=== PATIENT | female | born 1945 | race Caucasian/White ===

== ENCOUNTER → 2017-04-13 | Outpatient (CLI) | payer BC ==
--- NOTE | 2017-04-13 13:10 | DIAGNOSTIC IMAGING REPORT ---
RIGHT WRIST MIN 3 VIEWS ROUTINE CLINICAL HISTORY: Right wrist pain. COMPARISON: None FINDINGS: Alignment of the right wrist is anatomic. There is no fracture or suspicious lesion. A tiny lucent lesion within the scaphoid with sclerotic rim is benign. No erosions are identified. IMPRESSION: No significant abnormality of the right wrist. Electronically signed by: Quan Zhang M.D. 04/13/2017 1:09 PM Dictated Date/Time: 04/13/2017 1:08 PM
--- NOTE | 2017-04-13 13:11 | DIAGNOSTIC IMAGING REPORT ---
TWO VIEW CHEST CLINICAL HISTORY: Chronic cough. FINDINGS: PA and lateral chest radiographs are obtained. No prior studies are available for comparison at the time of dictation. The cardiomediastinal silhouette is unremarkable. There is mild nonspecific interstitial thickening. No airspace consolidation or pleural effusion is identified. There is no pneumothorax. The skeletal structures are osteopenic. The bony thorax appears intact. IMPRESSION: No active disease in the chest. Electronically signed by: Vipin Villanueva M.D. 04/13/2017 1:10 PM Dictated Date/Time: 04/13/2017 1:09 PM
== END | disposition home or self-care (01) ==
LOC: C.RAD1850 12:34
PROVIDERS: ATTEND Nurse Practitioner Adult Health
DX: R05 Cough (principal); M25.531 Pain in right wrist

== ENCOUNTER → 2017-04-19 | Outpatient (CLI) | payer BC ==
--- NOTE | 2017-04-19 12:14 | DIAGNOSTIC IMAGING REPORT ---
SINUSES MIN 3 VIEWS ROUTINE CLINICAL HISTORY: J01.90 Acute [id number] COMPARISON STUDY: No previous studies for comparison. FINDINGS: No air-fluid levels are visualized. No bony destructive changes are delineated. The frontal sinuses appear hypoplastic. IMPRESSION: Hypoplastic frontal sinuses. No conventional radiographic evidence of acute sinusitis. Electronically signed by: Milton Vázquez M.D. 04/19/2017 12:13 PM Dictated Date/Time: 04/19/2017 12:12 PM
== END | disposition home or self-care (01) ==
LOC: C.RAD1850 11:57
PROVIDERS: ATTEND Internal Medicine Pulmonary Disease
DX: J01.90 Acute sinusitis, unspecified (principal)

== ENCOUNTER 2020-10-18 05:09 | Observation (INO) ==
--- NOTE | 2020-09-23 10:43 | PAT Medication Instructions ---
Medication Instructions Date of Service September 23, 2020 Home Medications multivitamin 1 tab PO QPM glucosamine-chondroitin [Osteo Bi-Flex] 3 tab PO QPM cholecalciferol (vitamin D3) 25 mcg (1,000 unit) capsule 2,000 unit PO QPM Bacillus coagulans [Digestive Advantage Prob Gummy] 500 cell PO QPM plant stanol elisha [Cholest Off] 900 mg PO BID turmeric root extract 500 mg PO QPM calcium carbonate [Tums] 200 mg PO BID PRN amlodipine 10 mg PO QPM STOP taking 2 weeks before surgery glucosamine-chondroitin [Osteo Bi-Flex] 3 tab PO QPM plant stanol elisha [Cholest Off] 900 mg PO BID turmeric root extract 500 mg PO QPM DO NOT take the morning of surgery calcium carbonate [Tums] 200 mg PO BID PRN Take evening before surgery multivitamin 1 tab PO QPM cholecalciferol (vitamin D3) 25 mcg (1,000 unit) capsule 2,000 unit PO QPM Bacillus coagulans [Digestive Advantage Prob Gummy] 500 cell PO QPM calcium carbonate [Tums] 200 mg PO BID PRN (if needed) amlodipine 10 mg PO QPM OTHERWISE NOTHING TO EAT OR DRINK AFTER MIDNIGHT Other Notes If you have any questions please call us at [phone] or [phone] or [phone] or [phone]
--- NOTE | 2020-09-28 12:49 | Anesthesiology Consultation ---
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 Discussed with Dr. Morales- pt can proceed with surgery as scheduled. Amide class usually used for SAB- pt has "possible" allergy to elisha class- reaction unknown. Per PAT appt on 09/28/20, pt resides in [facility]. Traveled to [place], [place] >2 weeks ago. Did have Covid exposure on 09/05/20- quarantined x 2 weeks. No current Covid related symptoms. Pt denies any Covid infection in the past 90 days. Educated patient to follow up with surgeon's office regarding Covid testing (patient educated usually done 6-7 days prior to surgery) . Educated on importance of self quarantining, social distancing and wearing mask in public both for the patient and household contacts. Teaching & Discussion Pre-Anesthesia Teaching/Discussion Notes: Instructed NPO after midnight before surgery,except medications with 15 cc of water. Medication instructions provided according to the PAT guidelines. History Surgery Operation Date: 10/18/20 13:30 Proposed Procedures p Right Total Knee Arthroplasty - Gio Hammer DO Height/Weight Height: 5 ft 4.5 in Weight: 77.6 kg Allergies Allergy/AdvReac Type Severity Reaction Status Date / Time acetaminophen [From Vicodin] AdvReac Intermediate Bowel Verified 09/28/20 13:55 obstruction hydrocodone [From Vicodin] AdvReac Intermediate Bowel Verified 09/28/20 13:55 obstruction lisinopril AdvReac Mild Cough Verified 09/28/20 13:55 procaine [From Novocain] AdvReac Unknown A Verified 09/28/20 13:55 CHILD-UNKNOWN Additional Notes: Surgeon's office was informed of procaine/novocaine allergy; also noted on OR sheet. Medications Home Medications Medication Instructions Recorded Confirmed Last Taken multivitamin 1 tab PO QPM 05/27/19 09/28/20 Unknown glucosamine-chondroitin [Osteo 3 tab PO QPM 10/30/19 09/28/20 Unknown Bi-Flex] cholecalciferol (vitamin D3) 25 2,000 unit PO QPM cap 05/31/20 09/28/20 Unknown mcg (1,000 unit) capsule Bacillus coagulans [Digestive 500 cell PO QPM 06/24/20 09/28/20 Unknown Advantage Prob Gummy] plant stanol elisha [Cholest Off] 900 mg PO BID 06/24/20 09/28/20 Unknown turmeric root extract 500 mg PO QPM 06/24/20 09/28/20 Unknown calcium carbonate [Tums] 200 mg PO BID PRN 08/04/20 09/28/20 Unknown amlodipine 10 mg PO QPM 09/06/20 09/28/20 Unknown Past Medical History Medical History (Updated 09/28/20 @ 13:21 by Samaria Kumar PA-C) Arthritis Cardiac murmur Hx of rheumatic fever as child 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 No significant murmur noted at 09/28/20 PAT appt Chronic cough Ongoing x years- unchanged. Nonproductive GERD (gastroesophageal reflux disease) Well controlled and stable- diet dependent Hyperlipidemia NO MEDS-DIET MANAGED Hypertension Hypothyroidism Exercise / Class Metabolic Activity II 4-5 Yardwork/Stairs/Walk up hill (one flight of stairs - no chest pain or SOB) Past Family History Family History Mother Coronary heart disease Myocardial infarction FH: CABG (coronary artery bypass surgery) Grandmother (Maternal) Diabetes Aunt Breast cancer Uncle Prostate cancer Myocardial infarction Sister Family history of reaction to anesthesia Denies family history of Ovarian cancer Colorectal cancer Past Surgical History Surgical History H/O pyloroplasty History of cataract surgery History of colonoscopy History of esophagogastroduodenoscopy (EGD) History of surgical removal of ganglion cyst History of tonsillectomy S/P oophorectomy S/P tubal ligation Past Anesthesia History No Hx of Anesthesia Complications and No Family Hx of Anesthesia Complications History of PONV No Hx of PONV and No Hx of Motion Sickness Social History Smoking Status: Never smoker Do You Dip or Chew Tobacco: No Hx Alcohol Use: No Hx Substance Use: No substance use type: does not use Review of Systems Has had beating sensation with "swishing" sound in left ear - (Pt called PAT 09/29/20 and states she followed up with PCP 09/29/20 re: symptoms and states PCP feels no significant issues noted) Occ snoring - no hx of sleep study. Patient denies chest pain, shortness of breath, dyspnea on exertion, wheezing, palpitations. No hx of seizures, stroke, NH, apnea/snoring. No hx of blood clots or blood transfusions Physical Exam Vital Signs VITALS BP 112/71 P 68 TEMP 97.9 SP02 98% RESP 16 Constitutional no acute distress ENMT Mouth: no TMJ clicking Thyromental Distance: > or= 3.5 Finger Breadths (3.5) Mallampati Class: III Left front tooth capped Missing molars and side teeth Crowns to molars and side teeth Neck neck extension not limited Respiratory normal respiratory effort; no respiratory distress Auscultation: lungs clear to auscultation bilaterally; no wheezes Cardiovascular Rate/Rhythm: regular rate and regular rhythm Heart Sounds: no murmur Vessels: no carotid bruit Musculoskeletal Spine: + pain with cervical ROM (mild ) Extremities: extremities normal to inspection Psychiatric Orientation: alert Testing Laboratory Results 09/28/20 13:19 09/28/20 13:19 PT 10.0 Seconds (9.0-12.0) 09/28/20 13:19 INR 1.0 (0.9-1.1) 09/28/20 13:19 APTT 29.8 Seconds (21.0-31.0) 09/28/20 13:19 Blood Type O Positive 09/28/20 13:19 Antibody Screen NEGATIVE 09/28/20 13:19 Electrocardiogram Date: 09/28/20 Sinus rhythm with first-degree AV block at 61 bpm. Otherwise normal EKG per cardio. Chest X-Ray Date: 09/28/20 Findings: + NAD Stress Test Date: 01/23/19 Type: exercise (Echo) Resting LV Function: normal Resting RWMA: + none Negative exercise stress echocardiogram stress EKG for ischemia at 86% MPHR. MPHR 86%. 4.6 METS achieved. Mild concentric LVH. LVEF 60%.
--- NOTE | 2020-09-28 13:50 | XRay Report ---
XR chest Pre-admission PA/Lat CLINICAL HISTORY: Preoperative evaluation. COMPARISON STUDY: Chest radiograph April 13, 2017. FINDINGS: Lung volumes are normal. Lungs are clear. There is no pneumothorax or pleural effusion. Car diac size is normal. Mediastinal contours are normal. There is no evidence for pulmonary edema. IMPRESSION: No acute cardiopulmonary findings. ACT 112: Negative or not required by law. Electronically signed by: Quan Zhang M.D. 09/28/2020 1:48 PM
[2020-09-28 13:59] LABS: Basophils # (auto) 0.02 K/uL (0-0.2); Basophils % (auto) 0.3 %; Eosinophils # (auto) 0.17 K/uL (0-0.5); Eosinophils % (auto) 2.8 %; Hematocrit (blood only) 40.8 % (37-47); Hemoglobin 13.8 g/dL (12.0-16.0); Lymphocytes # (auto) 2.37 K/uL (1.2-3.4); Lymphocytes % (auto) 39.6 %; Mean Corpuscular Hemoglobin 29.7 pg (25-34); Mean Corpuscular Hgb Conc 33.8 g/dL (32-36); Mean Corpuscular Volume 87.9 fL (80-100); Mean Platelet Volume 10.7 fL (7.4-10.4); Monocytes # (auto) 0.59 K/uL (0.11-0.59); Monocytes % (auto) 9.9 %; Neutrophils # (auto) 2.83 K/uL (1.4-6.5); Neutrophils % (auto) 47.4 %; Platelet Count 220 K/uL (130-400); RDW Coefficient of Variation 12.6 % (11.5-14.5); RDW Standard Deviation 40.6 fL (36.4-46.3); Red Blood Count 4.64 M/uL (4.2-5.4); White Blood Count 5.98 K/uL (4.8-10.8)
--- NOTE | 2020-09-28 14:00 | Electrocardiogram Report ---
Test Reason : Blood Pressure : / mmHG Vent. Rate : 061 BPM Atrial Rate : 061 BPM P-R Int : 232 ms QRS Dur : 086 ms QT Int : 438 ms P-R-T Axes : 057 025 036 degrees QTc Int : 440 ms Sinus rhythm with 1st degree A-V block Otherwise normal ECG No previous ECGs available Confirmed by Jone Metzger ([id number]) on 09/28/2020 2:00:28 PM Referred By: Gio Hammer Confirmed By:Jone Metzger
[2020-09-28 14:07] LABS: Calcium 9.8 mg/dl (8.5-10.1); Creatinine Clr Calc Pharmacy 54.8 ml/min; Potassium 3.9 mmol/L (3.5-5.1)
[2020-09-28 14:09] LABS: Partial Thromboplastin Ratio 1.1; Partial Thromboplastin Time 29.8 Seconds (21.0-31.0)
--- NOTE | 2020-10-14 16:13 | History & Physical Report ---
Date of Service October 14, 2020 Assessment & Plan (1) Right knee DJD: We will proceed with a right total knee arthroplasty. Postoperatively she will be placed on aspirin for DVT prophylaxis and kept overnight in the hospital for postoperative medical management. She plans to use energy physical therapy upon discharge. History of Present Illness Chief Complaint: Osteoarthritis of the right knee. Primary Care Provider: Simran Jacob MD Jeanie is a pleasant 75-year-old female who is been dealing with right knee pain for several years. She denies any specific injuries. X-rays and clinical examination have been diagnostic for advanced osteoarthritis of the right knee. After failing conservative treatment, she has elected to proceed with a right total knee arthroplasty.. Allergies Allergy/AdvReac Type Severity Reaction Status Date / Time acetaminophen [From Vicodin] AdvReac Intermediate Bowel Verified 10/05/20 12:39 obstruction hydrocodone [From Vicodin] AdvReac Intermediate Bowel Verified 10/05/20 12:39 obstruction lisinopril AdvReac Mild Cough Verified 10/05/20 12:39 procaine [From Novocain] AdvReac Unknown A Verified 10/05/20 12:39 CHILD-UNKNOWN Home Medications Medication Instructions Recorded Confirmed Type multivitamin 1 tab PO QPM 05/27/19 10/05/20 History glucosamine-chondroitin [Osteo 3 tab PO QPM 10/30/19 10/05/20 History Bi-Flex] cholecalciferol (vitamin D3) 25 2,000 unit PO QPM cap 05/31/20 10/05/20 History mcg (1,000 unit) capsule Bacillus coagulans [Digestive 500 cell PO QPM 06/24/20 10/05/20 History Advantage Prob Gummy] plant stanol elisha [Cholest Off] 900 mg PO BID 06/24/20 10/05/20 History turmeric root extract 500 mg PO QPM 06/24/20 10/05/20 History calcium carbonate [Tums] 200 mg PO BID PRN 08/04/20 10/05/20 History amlodipine 10 mg PO QPM 09/06/20 10/05/20 History Past Med/Surg History Medical History Arthritis Cardiac murmur Hx of rheumatic fever as child 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 No significant murmur noted at 09/28/20 PAT appt Chronic cough Ongoing x years- unchanged. Nonproductive GERD (gastroesophageal reflux disease) Well controlled and stable- diet dependent Hyperlipidemia NO MEDS-DIET MANAGED Hypertension Hypothyroidism Surgical History H/O pyloroplasty INFANT History of cataract surgery right and left History of colonoscopy History of esophagogastroduodenoscopy (EGD) History of surgical removal of ganglion cyst pinky finger on right hand History of tonsillectomy S/P oophorectomy S/P tubal ligation Family History Mother Coronary heart disease Myocardial infarction FH: CABG (coronary artery bypass surgery) Grandmother (Maternal) Diabetes Aunt Breast cancer Uncle Prostate cancer Myocardial infarction Sister Family history of reaction to anesthesia take a lot of anesthesia Denies family history of Ovarian cancer Colorectal cancer Social History Smoking Status: Never smoker Second Hand Exposure: No; Hx Alcohol Use: No Hx Substance Use: No Preferred Language: Turkmen Communication Ability: Effective Scrap Baller Required: No Beliefs That Will Affect Care: None marital status: Current Living Situation: Spouse current occupational status: retired Feels Safe at Home: Yes Dental Care, Regularly: Yes Physical Activity Frequency: Does not Exercise Seatbelt Use: always Sunscreen Use: Yes (sometimes) Assistive Devices: None Review of Systems All systems reviewed & are unremarkable except as noted in HPI & below. Physical Exam On physical examination of the right knee, there is a slight varus deformity. She has good motion of 0 to 120 degrees. She has no instability. She has pain over the distal medial femoral condyle and over the medial joint line.. Constitutional WD/WN, vitals as above Eyes PERRL, conjunctivae normal, anicteric sclerae ENMT external ear and nose normal, oropharynx normal Neck trachea midline, no thyromegaly Respiratory normal respiratory effort Cardiovascular RRR, no murmur, no edema Gastrointestinal (Abdomen) normal bowel sounds, soft, nontender, no hepatosplenomegaly Psychiatric A+Ox3, euthymic affect Results & Data Results & Data Laboratory Results . Diagnostic Findings X-rays of the right knee do show advanced osteoarthritis with joint space narrowing, osteophyte formation, and [id number]-[id number] articulation.. PG Care Time/CCT Total # of Minutes Spent Total Time Spent with Patient: Total time spent is greater than 50% in coordination of care (as documented) at patient's floor/unit and/or counseling patient: Coding Level of Care Code None Diagnoses Right knee DJD M17.11
[2020-10-18] MEDS ORDERED: TRANEXAMIC ACID 1,000 MG **IV Intra-op IV SCH (06:00)
[2020-10-18] MEDS ORDERED: GABAPENTIN 300 MG CAP PO SCH (06:00)
[2020-10-18] MEDS ORDERED: TRANEXAMIC ACID 1,000 MG **IV Pre-op IV SCH (06:00)
[2020-10-18] MEDS ORDERED: LR 500ML BOLUS, THEN 15ML/HR IV SCH (06:00)
[2020-10-18] MEDS ORDERED: dexAMETHasone 4 MG TAB PO SCH (06:00)
[2020-10-18] MEDS ORDERED: FAMOTIDINE 20 MG TAB PO SCH (06:00)
[2020-10-18] MEDS ORDERED: ceFAZolin 1000MG 1,000 MG/7.5 ML SYR IV SCH (06:00)
[2020-10-18] MEDS ORDERED: ACETAMINOPHEN 500 MG TAB PO SCH (06:00)
[2020-10-18] MEDS ORDERED: LR 60ML/HR IV SCH (06:00)
[2020-10-18] MEDS ORDERED: ROPIVACAINE 0.5% HCL/PF 150 MG, BUPIVACAINE 0.75% MPF 20 ML, EPINEPHrine 30MG/30ML (OR ... INSTIL SCH (06:00)
[2020-10-18] MEDS ORDERED: BUPIVACAINE 0.25% 30 ML VIAL ONE (06:29)
[2020-10-18] MEDS ORDERED: BUPIVACAINE 0.5 % 5 MG/1 ML PF 10ML VIAL ONE (06:29)
--- NOTE | 2020-10-18 06:29 | History & Physical Bridge Note ---
Date of Service October 18, 2020 History & Physical Bridge Note I have examined the patient, reviewed the History & Physical and in the interval since the performance of the History & Physical I have noted the following changes of clinical significance: no changes noted
[2020-10-18] MEDS ORDERED: MIDAZOLAM HCL 1 MG/ML 2ML VIAL ONE (06:36)
[2020-10-18] MEDS ORDERED: fentaNYL citrate 100 MCG/2 ML VIAL ONE (06:36)
[2020-10-18] MEDS ORDERED: PROPOFOL IV EMULSION 10 MG/ML 20 ML VIAL IV ONE (06:36)
[2020-10-18] MEDS ORDERED: ONDANSETRON INJ 2 MG/ML 2 ML VIAL ONE (06:36)
[2020-10-18] MEDS ORDERED: LIDOCAINE HCL 2% 2 ML VIAL/AMP(20MG/ML) INFIL ONE (06:36)
[2020-10-18] MEDS ORDERED: ePHEDrine sulfate 50 MG/ML AMP IV PRN (06:55)
[2020-10-18] MEDS ORDERED: ONDANSETRON INJ 2 MG/ML 2 ML VIAL IV PRN ×2 (06:55→10:06)
[2020-10-18] MEDS ORDERED: fentaNYL citrate 100 MCG/2 ML VIAL IV PRN (06:55)
[2020-10-18] MEDS ORDERED: ATROPINE SULFATE 0.1 MG/ML 10ML SYR IV PRN (06:55)
[2020-10-18] MEDS ORDERED: ORTHO JOINT ANESTHETIC ONE (07:00)
--- NOTE | 2020-10-18 08:39 | Operative Report ---
PG Post Operative Report Pre & Post Diagnosis Operation Date: 10/18/20 07:15 Pre-Op Diagnosis: Degenerative Joint Disease Right Knee Post-Op Diagnosis: Degenerative Joint Disease Right Knee I identified the patient and participated in the time-out.: Yes Procedure Operation Date: 10/18/20 07:15 Actual Procedures p Right Total Knee Arthroplasty(Right) - Gio Hammer DO Surgeon Gio Hammer DO Washing Tub Operator Gio Yeung PAC Estimated Blood Loss 10 Findings Consistent with Post-Op Diagnosis Specimens Right femoral and tibial bone Complications none Disposition Disposition: Recovery Room Indications Jeanie is a pleasant 75-year-old female who is been doing with chronic increasing right knee pain. X-rays and clinical examination were diagnostic for advanced osteoarthritis of the right knee. After failing conservative treatment, she elected proceed with a right total knee arthroplasty. Description of Procedure Implants used: I used a Heena Persona total knee arthroplasty system with a size 8 standard femur, F tibia, 29 patella, and a size 12 medial congruent polyethylene bearing. All components were cemented in place with Palacos G cement. Jeanie arrived [facility] for the above procedure. She was seen in the preoperative holding area and the operative extremity was identified and signed. She was given a preoperative antibiotic, TXA, a spinal anesthetic and an adductor nerve block. She was taken back to the operating room and laid on the table in supine position. She was given basic sedation. The operative knee was then prepped and draped in sterile fashion. A timeout was done, and the patient and the operative extremity was properly identified. A midline incision was made directly over the patella. Dissection was taken down to the extensor mechanism. A subvastus arthrotomy was used. The medial retinaculum was released and the fat pad was mostly excised. The knee was flexed and the ACL, PCL, and meniscus were removed. A drill was sent down the center of the femoral canal followed by an intramedullary ellen. Off that ellen a distal femoral cutting block was placed. 9 mm was resected off the distal femur at 5 of valgus. A posterior referencing AP sizing guide was then placed on the distal femur. The femur measured to be a size 8 standard. 2 drill holes were placed in 3 of external rotation. A 4-in-1 cutting block was then impacted into place. Anterior, posterior, and chamfer cuts were then made. The proximal tibia was then exposed. An external tibial alignment guide was placed. A tibial cut guide was then anchored in place and the proximal tibia was then resected. The posterior aspect of the knee was then opened up and any additional meniscus fragments and osteophytes were removed. The tibia measured to be a size F. The tibial plate was then placed in the appropriate rotation and the tibia was drilled and punched. Trial components were then placed. I used a size 12 medial congruent polyethylene insert. The knee was brought through a full range of motion and felt to be stable. The peg holes for the femoral component were then drilled. The patella was then everted and 9 mm was resected off the posterior aspect of the patella. The patella measured to be a size 29. 3 peg holes were then drilled. A trial patella was placed. The knee was once again brought through a full range of motion and felt to be stable. Trial components were then removed. The surrounding soft tissues were injected with 100 cc of an orthopedic pain control cocktail. All components were then cemented into place with Palacos G cement. The final polyethylene insert was then snapped into place. Once cement was dry the tourniquet was deflated. Hemostasis was obtained. A dilute betadyne lavage was then done for 3 minutes. The joint was then irrigated with normal saline solution. The subvastus arthrotomy was then closed with #1 Vicryl suture. The skin was closed with 2-0 Vicryl, 3-0V lock suture, and luis. A Silverlon and a soft compressive dressing were placed. She was then transferred to a hospital bed and taken to the postanesthesia care unit in stable condition. She tolerated the procedure well. Gio Yeung PA-C, was present for the entire procedure. He was critical for patient positioning, prepping, draping, retraction exposure, wound closure and application of sterile dressing. I attest to the content of the Intraoperative Record and any orders documented therein. Any exceptions are noted below.
--- NOTE | 2020-10-18 09:41 | XRay Report ---
XR knee RT 1 or 2V routine CLINICAL HISTORY: Postoperative evaluation. COMPARISON: Knee radiographs July 05, 2020. FINDINGS: Alignment of the total right knee arthroplasty is anatomic. There is no periprosthetic fra cture or unexpected radiopaque foreign body. There are skin luis. IMPRESSION: Expected findings following total right knee arthroplasty. ACT 112: Negative or not required by law. Electronically signed by: Quan Zhang M.D. 10/18/2020 9:39 AM
[2020-10-18] MEDS ORDERED: METOCLOPRAMIDE HCL INJ 5 MG/ML 2 ML VIAL IV PRN (10:06)
[2020-10-18] MEDS ORDERED: bisacodyL 10 MG SUPP PR PRN (10:06)
[2020-10-18] MEDS ORDERED: MAGNESIUM HYDROXIDE SUSP 30 ML UDC PO PRN (10:06)
[2020-10-18] MEDS ORDERED: HYDROmorphone INJ 0.5 MG/0.5 ML SYR IV PRN (10:06)
[2020-10-18] MEDS ORDERED: NALOXONE HCL 0.4 MG/1 ML VIAL/CARP IV PRN (10:06)
[2020-10-18] MEDS: SODIUM CHLORIDE 0.9% 1000ML 1,000 ML IV SCH ×2 (10:59→20:36)
[2020-10-18] MEDS: KETOROLAC TROMETHAMINE 15 MG/ML VIAL IV SCH ×3 (10:59→22:08)
[2020-10-18] MEDS: ASPIRIN 81 MG ECTAB PO SCH ×2 (11:00→20:35)
[2020-10-18] MEDS: MULTIVITAMIN TAB PO SCH (11:00)
[2020-10-18] MEDS: DOCUSATE SODIUM 100 MG CAP PO SCH ×2 (11:11→20:35)
[2020-10-18] MEDS: oxyCODONE HCL IR 5 MG TAB (IMMEDIATE RELEASE) PO PRN (12:41)
[2020-10-18] MEDS: ACETAMINOPHEN 500 MG TAB PO SCH ×2 (13:22→22:07)
--- NOTE | 2020-10-18 13:53 | Anesthesiology Progress Note ---
Date of Service October 18, 2020 Anesthesia Post Procedure Vital Signs Vital Signs: Temp Pulse Pulse Pulse Resp BP BP 10/18/20 12:54 65 16 124/65 10/18/20 12:01 65 16 125/72 10/18/20 11:01 36.4 C L 69 16 118/68 10/18/20 10:29 68 16 120/72 10/18/20 10:00 36.7 C 59 L 16 129/60 10/18/20 09:40 36.4 C L 60 20 131/65 10/18/20 09:30 57 L 19 128/61 10/18/20 09:20 58 L 10 L 122/63 10/18/20 09:10 58 L 10 L 137/60 10/18/20 09:00 58 L 21 131/69 10/18/20 08:50 64 15 138/65 10/18/20 08:43 36.0 C L 66 16 126/57 L 10/18/20 05:46 36.6 C 69 20 133/69 Pulse Ox 10/18/20 12:54 97 10/18/20 12:01 96 10/18/20 11:01 100 10/18/20 10:29 95 10/18/20 10:00 98 10/18/20 09:40 97 10/18/20 09:30 100 10/18/20 09:20 100 10/18/20 09:10 96 10/18/20 09:00 96 10/18/20 08:50 97 10/18/20 08:43 97 10/18/20 05:46 96 Pain Intensity Right Knee: Pain Intensity: 2 Transfer of Care Handoff Completed per policy Notes Mental Status: alert / awake / arousable Patient Amnestic to Procedure: Yes Nausea / Vomiting: adequately controlled Pain: adequately controlled Airway Patency, RR, SpO2: stable & adequate BP & HR: stable & adequate Hydration State: stable & adequate Neuraxial Anesthesia: was administered and sensory block is resolving Anesthetic Complications: no major complications apparent and Pt Satisfied with anesthetic care
[2020-10-18] MEDS: ceFAZolin 2000MG 2,000 MG/15 ML SYR IV SCH ×2 (15:32→22:09)
[2020-10-18] MEDS ORDERED: SENNA 8.6 MG TAB PO SCH (21:00)
[2020-10-18] MEDS ORDERED: amLODIPine BESYLATE 5 MG TAB PO SCH (21:00)
[2020-10-19] MEDS: ACETAMINOPHEN 500 MG TAB PO SCH (05:20)
[2020-10-19] MEDS: KETOROLAC TROMETHAMINE 15 MG/ML VIAL IV SCH (05:21)
[2020-10-19 06:40] LABS: Hematocrit (blood only) 35.6 % (37-47); Hemoglobin 12.2 g/dL (12.0-16.0); Mean Corpuscular Hemoglobin 29.8 pg (25-34); Mean Corpuscular Hgb Conc 34.3 g/dL (32-36); Mean Platelet Volume 10.2 fL (7.4-10.4); Platelet Count 204 K/uL (130-400); RDW Coefficient of Variation 12.6 % (11.5-14.5); RDW Standard Deviation 40.5 fL (36.4-46.3); Red Blood Count 4.09 M/uL (4.2-5.4); White Blood Count 13.65 K/uL (4.8-10.8)
--- NOTE | 2020-10-19 06:46 | Orthopedic Progress Note ---
Date of Service October 19, 2020 Assessment & Plan (1) Status post right knee replacement: Overall she is doing well. She is having too much pain in the right knee. She will be seen by physical therapy today for ambulation and range of motion exercises. She is on aspirin for DVT prophylaxis. She can be discharged home later today. She will follow-up with orthopedics in 2 weeks. Bo Ware was seen and examined at bedside this morning. Overall she is doing fairly well. She is starting to have a little pain in the right leg. She was able to get some sleep last night. She has no complaints.. Review of Systems All systems reviewed & are unremarkable except as noted in HPI & below. Physical Exam On physical examination of the right knee, the dressing is clean and dry. She has active dorsiflexion plantarflexion of her right ankle. Sensation is intact throughout.. Results & Data Results & Data Laboratory Results . Diagnostic Findings Postoperative x-rays of the right knee show the prosthesis to be in anatomic alignment without any evidence of fracture, dislocation, or loosening.. PG Care Time/CCT Total # of Minutes Spent Total Time Spent with Patient: Total time spent is greater than 50% in coordination of care (as documented) at patient's floor/unit and/or counseling patient: Coding Level of Care Code 91373 Post Operative Follow-Up Diagnoses Status post right knee replacement Z96.651
--- NOTE | 2020-10-19 06:47 | Discharge Summary ---
Date of Service October 19, 2020 Admission HPI (Per Admitting) Jeanie is a pleasant 75-year-old female who is been dealing with right knee pain for several years. She denies any specific injuries. X-rays and clinical examination have been diagnostic for advanced osteoarthritis of the right knee. After failing conservative treatment, she has elected to proceed with a right total knee arthroplasty.. Admission Exam (Per Admitting) On physical examination of the right knee, there is a slight varus deformity. She has good motion of 0 to 120 degrees. She has no instability. She has pain over the distal medial femoral condyle and over the medial joint line.. Principal Diagnosis Same as "Discharge Diagnosis" noted below under Discharge Instructions. Discharge Exam On physical examination of the right knee, the dressing is clean and dry. She has active dorsiflexion plantarflexion of her right ankle. Sensation is intact throughout.. Discharge Data Consultations 10/18/20 10:06 Consult Case Management - Discharge Planning Routine Procedures Performed Operation Date: 10/18/20 07:15 Actual Procedures p Right Total Knee Arthroplasty(Right) - Gio Hammer DO Ordered Studies 10/18/20 05:00 US - OR guided needle placemen Routine Hospital Course (1) Status post right knee replacement: On October 18, 2020 Jeanie arrived at [facility] and underwent a right total knee arthroplasty without complication. She had a spinal anesthetic. Postoperatively she was started on aspirin for DVT prophylaxis and transferred to the general orthopedic floors. Her hospital course was uneventful. On postop day #1 her H&H was stable and her pain was well controlled. She was able to participate well with physical therapy doing ambulation and range of motion exercises. She was then discharged to home. She will follow-up with orthopedics in 2 weeks. PG Care Time/CCT Total # of Minutes Spent Total Time Spent with Patient: Total time spent is greater than 50% in coordination of care (as documented) at patient's floor/unit and/or counseling patient: Discharge Plan Discharge Items Patient Disposition: Home - Home Health Services Reason For Visit: Degenerative Joint Disease Right Knee Discharge Diagnosis: Right knee replacement Activity: As commented below Non-emergency contact: Surgeon Call non-emergency contact if: your wound has increased redness and your wound has increased drainage Follow-up/Referrals: Balabanova-Tsarnakov,Ralitsa V., MD [Primary Care Provider] - Diet: Regular Addtl Attending Provider Instructions: Activity and Therapy Recommendations: * If you are using [facility] then therapy will be provided at your home until they feel you have accomplished all of your goals. * If you are using [facility] then Physical Therapy will be provided until they feel you are ready to start Outpatient Physical Therapy. * If you are not using home therapy then Outpatient Physical Therapy should start about 3-5 days from your day of surgery. Therapy will last about 6-10 weeks * It is important not to put a pillow under your knee when you are relaxing or sleeping. It is just as important to make sure you are getting your knee perfectly straight as it is to regain your knee bend. * You were shown a series of exercises in the hospital. Do these exercises three times each day including the exercises you were shown in physical therapy. * Get up and walk several times each day. For the first four weeks, try not to stand or walk for more than one hour at a time. If you do stand or walk for more than one hour, you will not hurt anything, but your leg will likely swell. * As you feel comfortable, you may change from the walker or crutches to a cane and then to independent walking. Medications: * Narcotic You will likely be sent home from the hospital with a prescription for the narcotic pain medication that worked best throughout your stay. * Aspirin Most patients will be required to take Aspirin 81mg twice a day for 6 weeks after surgery. This is obtained [id number] and a prescription is not necessary. * Other medications may be prescribed for specific circumstances. If you have any questions, please call the office at . * Resume previous home medications unless otherwise instructed TEDs/Elastic Stockings: The white elastic stockings help limit swelling and prevent blood clots from forming in your legs.~ The more you wear them, the more they work. Wear them for six weeks. Dressing Care: Leave the Silverlon dressing in place for 7 days. After 7 days you may remove the dressing. If the incision is not draining then you may leave the luis open to air. If there is a little bit of drainage or if the luis are getting stuck on your clothing then cover the incision with a dry dressing. The luis will be removed at your 2 week follow-up appointment. Showering: You may shower with the Silverlon dressing in place. Do not let the shower spray hit the dressing directly. Pat the Silverlon dressing dry. If the dressing becomes wet underneath, then simply remove the dressing. Keep the incision dry until you are 7 days out from the day of surgery. After 7 days you may remove the Silverlon dressing and shower with the luis exposed. Let soapy water run over the luis and pat them dry. Do not scrub or soak the incision. Things To Watch For: * Drainage from the incision site that occurs more than one week after your surgery. * Increased redness at the incision site. * Fever above 102 degrees Fahrenheit. * Unusual chest pain or shortness of breath. * Call [facility] at with any of the above problems Follow-Up Visit: Follow-up with Dr. Hammer's PA (Gio Yeung) 2-3 weeks after your day of surgery. He will remove your luis and answer any questions. If you have any additional questions or concerns, Dr Hammer is usually in the office at the same time and will be available An appointment was probably scheduled when you signed-up for surgery in the office. If you have any questions call Office Instructions: More detailed instructions as well as Frequently Asked Questions were provided in a folder by our office when you signed-up for surgery. Please review these instructions when you get home. If you have any further questions or concerns, please feel free to call the office at [phone] Pending Studies at Discharge: No Stand-Alone Forms: [facility], Smoking Cessation Medications and DC Order Prescriptions: New oxycodone 5 mg Tablet 5 mg PO Q4H PRN (Reason: pain) Qty: 30 RF: 0 aspirin 81 mg Tablet,Delayed Release (Dr/Ec) 81 mg PO BID 42 Days Qty: 0 RF: 0 Continued multivitamin tablet 1 tab PO QPM RF: 0 cholecalciferol (vitamin D3) 25 mcg (1,000 unit) capsule 2,000 unit PO QPM RF: 0 Cholest Off 450 mg Tablet 900 mg PO BID RF: 0 turmeric root extract 500 mg Capsule 500 mg PO QPM RF: 0 amlodipine 10 mg tablet 10 mg PO QPM RF: 0 glucosamine-chondroitin [Osteo Bi-Flex] 250-200 mg Tablet 3 tab PO QPM RF: 0 calcium carbonate [Tums] 200 mg calcium (500 mg) Tablet,Chewable 200 mg PO BID PRN (Reason: gerd) RF: 0 Digestive Advantage Probiotic 1 tab PO QPM RF: 0 Tylenol Arthritis Pain 2 tab PO Q8 PRN (Reason: Pain) RF: 0 Discharge Orders: Discharge Order (Routine); Ordered 10/19/20 Ordered By: Gio Hammer Admission Data Admit Date/Time: 10/18/20 08:46 Attending Provider: Gio Hammer Admit Provider: Gio Hammer Primary Care Provider: Simran Jacob V.
[2020-10-19 07:08] LABS: BUN Creatinine Ratio 16.4 (10-20); Calcium 8.9 mg/dl (8.5-10.1); Creatinine Clr Calc Pharmacy 51.9 ml/min; Est GFR (African American) 70.1; Est GFR (Non-African American) 60.5; Potassium 3.6 mmol/L (3.5-5.1)
[2020-10-19] MEDS: DOCUSATE SODIUM 100 MG CAP PO SCH (07:47)
[2020-10-19] MEDS: ASPIRIN 81 MG ECTAB PO SCH (07:47)
[2020-10-19] MEDS: MULTIVITAMIN TAB PO SCH (07:47)
[2020-10-19] MEDS: oxyCODONE HCL IR 5 MG TAB (IMMEDIATE RELEASE) PO PRN (07:48)
[2020-10-19] MEDS ORDERED: dexAMETHasone 4 MG TAB PO SCH (08:00)
== END 2020-10-19 11:28 | disposition home health service (06) ==
LOC: ASU 05:09 → 3E 05:09

== ENCOUNTER 2023-06-25 08:32 | Observation (INO) ==
--- NOTE | 2023-05-22 10:59 | PAT Medication Instructions ---
Medication Instructions Date of Service May 22, 2023 Home Medications multivitamin 1 tab PO QPM cholecalciferol (vitamin D3) 25 mcg (1,000 unit) capsule 2,000 unit PO QPM turmeric root extract 500 mg capsule 500 mg PO QAM calcium carbonate 200 mg calcium (500 mg) chewable tablet (Tums) 200 mg PO BID PRN glucosamine-chondroitin 250 mg-200 mg tablet (Osteo Bi-Flex) 2 tab PO QPM mecobalamin (vitamin B12) 1,000 mcg chewable tablet 1,000 mcg PO QPM Thytrophin 1 tab PO QPM enalapril maleate 5 mg tablet 5 mg PO QAM magnesium malate, chelate 125 mg PO QPM STOP taking 2 weeks before surgery (or as soon as possible if surgery is within 2 weeks) turmeric root extract 500 mg capsule 500 mg PO QAM glucosamine-chondroitin 250 mg-200 mg tablet (Osteo Bi-Flex) 2 tab PO QPM Thytrophin 1 tab PO QPM DO NOT take the morning of surgery calcium carbonate 200 mg calcium (500 mg) chewable tablet (Tums) 200 mg PO BID PRN enalapril maleate 5 mg tablet 5 mg PO QAM Take evening before surgery multivitamin 1 tab PO QPM cholecalciferol (vitamin D3) 25 mcg (1,000 unit) capsule 2,000 unit PO QPM calcium carbonate 200 mg calcium (500 mg) chewable tablet (Tums) 200 mg PO BID PRN mecobalamin (vitamin B12) 1,000 mcg chewable tablet 1,000 mcg PO QPM magnesium malate, chelate 125 mg PO QPM Other Notes NOTHING TO EAT OR DRINK AFTER MIDNIGHT. If you have any questions please call us at [phone] or [phone] or [phone] or [phone]
--- NOTE | 2023-05-25 09:16 | Anesthesiology Consultation ---
Date of Service May 25, 2023 Assessment & Plan (1) Encounter for pre-operative examination: - Infectious disease screening: Per assessment on 05/25/23: No known infectious disease contacts. No noted Covid positive test result in past 90 days. Chronic cough x years. Previously worsened with Lisinopril. Back to baseline after discontinuation. Recently started on enalapril and had recurrence in similar cough with previous Lisinopril use. PCP currently adjusting BP meds. Patient was advised that if symptoms not back to baseline/persistent/worsening prior to surgery, to contact PAT with update/discussion if anything further needed prior to surgery. If patient back to baseline, patient okay to proceed with surgery without further Covid testing/precautions. - Outpatient joint assessment: Pt currently scheduled for inpatient pathway. If surgeon requests review for outpatient joint pathway, patient is not recommended candidate for outpatient joint program from anesthesia standpoint. - S/P Right TKA (10/18/20): SAB at L3-4 + PNB at [facility] - Novocaine allergy: Per patient, she states that mother had told her she had a childhood reaction to Novocaine. No further details. Moraima at surgeon's office made aware. Patient had Right TKA performed 10/2020 (SAB + PNB with bupivacaine) without issue* - PCP visit (05/17/23 [facility]): "SOB - acute resolved.. Reviewed patient's chart which notes that she was seen by primary care on 05/15/2023 due to concerns of shortness of breath-full work-up revealed elevated D-dimer and therefore patient was instructed to go to emergency room for further work-up.. Reviewed emergency room visit from 05/15/[address]23 which notes normal chest CT however possible small 3-4 mm nodule in the right upper lobe. Follow-up CT in 12 months discussed. Patient states that she would like to follow-up with CT scan for further evaluation in the future.. Hypertension-chronic not well controlled.. Patient previously on lisinopril-discontinued due to concern of a cough.. Currently on hydrochlorothiazide however patient has concern that this is affecting her kidneys and would like to discontinue.. Discussed starting alternative AB and monitor response with time.. Discussed starting enalapril 5 mg once daily, discontinue hydrochlorothiazide.. Recheck blood work in 2 weeks prior to follow- up visit for recheck of blood pressure.. Instructed to contact the office sooner if she does develop a cough.. Follow-up in 2 weeks-recheck of blood pressure, review blood work" - Patient subsequently seen at [facility] 05/25/23. She states that she did in fact develop a cough after starting enalapril. Previous difficulty with reactions to multiple BP meds (possible "eye deposits" with amlodipine, cough with lisinopril, concern for kidney being affected with HCTZ). Patient was instructed at [facility] visit to update PCP as soon as possible to discuss enalapril reaction further. Workload message indicates communication between patient/PCP regarding development of cough with enalapril. Awaiting PCP followup visit/BP management (ZOYA, appt 05/31). Chart Review Chart Review: Patient seen in Pre Admission Testing Teaching & Discussion Pre-Anesthesia Teaching/Discussion Notes: Instructed NPO after midnight before surgery,except medications with 15 cc of water. Medication instructions provided according to the [facility] guidelines. History Surgery Operation Date: 06/25/23 08:10 Proposed Procedures p Left Total Knee Arthroplasty - Gio Hammer DO Height/Weight Height: 5 ft 4 in Weight: 78.2 kg Allergies Allergy/AdvReac Type Severity Reaction Status Date / Time cat dander Allergy Severe Severe eye Verified 05/22/23 14:10 swelling olmesartan Allergy Intermediate Leg Verified 05/22/23 14:10 swelling procaine [From Novocain] Allergy Unknown Unknown Verified 05/22/23 14:10 reaction (as child) hydrocodone [From Vicodin] AdvReac Intermediate Bowel Verified 05/21/23 09:35 obstruction lisinopril AdvReac Mild Cough Verified 05/21/23 09:35 Additional Notes: *Moraima at surgeon's office made aware to Novocaine allergy hx* Medications Home Medications Medication Instructions Recorded Confirmed Last Taken multivitamin 1 tab PO QPM 05/27/19 05/21/23 10/17/20 18:00 cholecalciferol (vitamin D3) 25 2,000 unit PO QPM 05/31/20 05/21/23 10/17/20 18:00 mcg (1,000 unit) capsule turmeric root extract 500 mg 500 mg PO QAM 06/24/20 05/21/23 10/04/20 18:00 capsule calcium carbonate 200 mg calcium 200 mg PO BID PRN gerd 08/04/20 05/21/23 Unknown (500 mg) chewable tablet (Tums) glucosamine-chondroitin 250 mg-200 2 tab PO QPM 02/06/23 05/21/23 Unknown mg tablet (Osteo Bi-Flex) mecobalamin (vitamin B12) 1,000 1,000 mcg PO QPM 02/06/23 05/21/23 Unknown mcg chewable tablet Thytrophin 1 tab PO QPM 05/21/23 05/21/23 Unknown enalapril maleate 5 mg tablet 5 mg PO QAM 05/21/23 05/21/23 Unknown magnesium malate, chelate 125 mg PO QPM 05/21/23 05/21/23 Unknown Past Medical History Medical History Abnormal TSH Taking thytrophin TSH/Free T4 WNL 02/2023 Arthritis Cardiac murmur Hx rheumatic fever as child Does not follow with dining host Stress Echo 02/2022: No significant valvular disease Chronic cough Chronic, non-productive x years- unchanged Cystocele with uterine prolapse GERD (gastroesophageal reflux disease) History of COVID-19 x4, most recent 07/2022- mild symptoms, resolved Hyperlipidemia Hypertension Uterine prolapse Exercise / Class Metabolic Activity II 4-5 Yardwork/Stairs/Walk up hill (one FS (no CP, no SOB)) Past Family History Family History Mother Coronary heart disease Myocardial infarction FH: CABG (coronary artery bypass surgery) Grandmother (Maternal) Diabetes Aunt Breast cancer Uncle Prostate cancer Myocardial infarction Sister Family history of reaction to anesthesia take a lot of anesthesia Denies family history of Ovarian cancer Colorectal cancer Past Surgical History Surgical History H/O pyloroplasty As infant History of cataract surgery R/L History of colonoscopy History of esophagogastroduodenoscopy (EGD) History of surgical removal of ganglion cyst pinky finger on right hand History of tonsillectomy S/P oophorectomy S/P tubal ligation S/P vaginal hysterectomy 03/2021, vault suspension, post repair, Jonnathan Spears [facility] [place] Status post right knee replacement Right TKA (10/18/20): SAB at L3-4 + PNB at [facility] Past Anesthesia History No Hx of Anesthesia Complications *Sister- Needed "more anesthesia than normal" and did still had awareness, patient has not had similar issue personally* Social History Smoking Status: Never smoker Do You Dip or Chew Tobacco: No Hx Alcohol Use: No Hx Substance Use: No substance use type: does not use Review of Systems Chronic cough x years. Previously worsened with Lisinopril. Back to baseline after discontinuation. Recently started on enalapril and had recurrence in similar cough with previous Lisinopril use. PCP currently adjusting BP meds. Patient denies chest pain, shortness of breath, dyspnea on exertion, fever, chills, cough, wheezing, palpitations. Physical Exam Vital Signs VITALS BP 133/73 P 84 TEMP 98.4 SP02 95%RA RESP 16 PHYSICAL Full cervical extension range of motion. Full TMJ range of motion. TMD 3 finger breaths Mallampati Score 3 Dentition: intact Lungs: clear throughout to auscultation Cardiac: regular rate and rhythm, no murmurs noted Spine: normal Carotid arteries: negative bruit Extremities: no LE edema Lab Results Anesthesia Preop Results Results Anesthesia Widget: WBC 5.25 K/ul (4.8-10.8) 05/25/23 Hgb 13.4 g/dl (12.0-16.0) 05/25/23 Hct 38.6 % (37.0-47.0) 05/25/23 Plt 223 K/uL (130-400) 05/25/23 Na 137 mmol/L (136-145) 05/15/23 K 3.4 mmol/L (3.5-5.1) L 05/15/23 Cl 101 mmol/L (98-107) 05/15/23 CO2 32 mmol/L (21-32) 05/15/23 BUN 16 mg/dl (6-23) 05/15/23 Creat 0.88 mg/dl (0.6-1.2) 05/15/23 Glucose Level 70 mg/dl (70-99(Fasting)) 05/15/23 PT 10.2 Seconds (9.0-12.0) 05/15/23 PTT 28.7 Seconds (21.0-31.0) 05/15/23 INR 0.9 (0.9-1.1) 05/15/23 Blood Type O Positive 05/25/23 Antibody Screen NEGATIVE 05/25/23 Testing Electrocardiogram Date: 05/15/23 Sinus rhythm at 77 bpm. PACs. Minimal voltage criteria for LVH, may be normal variant. PRWP, consider anterior TX versus lead placement versus LVH. Compared to 02/22/2022 ECG, PACs are now present per dining host comparison. Stress echo 02/22/2022 performed* Chest X-Ray Date: 05/15/23 FINDINGS: Lung volumes are normal. Lungs are clear. There is no pneumothorax or pleural effusion. Cardiac size is normal. Mediastinal contours are normal. There is no evidence for pulmonary edema. IMPRESSION: No acute cardiopulmonary findings. Stress Test Date: 02/22/22 Negative stress echo/ECG for ischemia at 95% MPHR. Hypertensive blood pressure response to exercise. Study terminated due to fatigue and hypertension. Jaw pain reported. No chest pain. Poor/fair exercise tolerance. 4 METS. Echo: EF 60-65%. No regional wall motion abnormalities. Mild concentric LVH. No significant valvular disease. Normal estimated RVSP. Other Testing Chest CT Date: 05/15/23 IMPRESSION: No pulmonary embolus identified. Atherosclerotic changes of the aorta. No aortic aneurysm or dissection. No acute pulmonary parenchymal abnormality identified. Possible small 3-4 mm nodule in the right upper lobe. According to Fleischner society recommendations, if patient is at low risk, no further follow-up is necessary. If patient is at high risk, consider follow-up CT in 12 months.
--- NOTE | 2023-06-21 15:19 | History & Physical Report ---
Date of Service June 21, 2023 Assessment & Plan (1) Osteoarthritis of left knee: We will proceed with a left total knee arthroplasty. Postoperatively she will be started on aspirin for DVT prophylaxis and kept overnight in the hospital for postop medical management. She plans [facility] upon discharge. History of Present Illness Chief Complaint: Osteoarthritis of the left knee. Primary Care Provider: Simran Jacob MD Jeanie is a pleasant 77-year-old female who has been dealing with chronic increasing left knee pain. I did a right knee replacement on her couple of years ago and she has done very well with that. She is struggling with her left knee. X-rays and clinical examination been diagnostic for advanced osteoarthritis of the left knee. After failing conservative treatment, she has elected proceed with a left total knee arthroplasty. Allergies Allergy/AdvReac Type Severity Reaction Status Date / Time cat dander Allergy Severe Severe eye Verified 06/11/23 14:02 swelling olmesartan Allergy Intermediate Leg Verified 06/11/23 14:02 swelling procaine [From Novocain] Allergy Unknown Unknown Verified 06/11/23 14:02 reaction (as child) hydrocodone [From Vicodin] AdvReac Intermediate Bowel Verified 06/11/23 14:02 obstruction lisinopril AdvReac Mild Cough Verified 06/11/23 14:02 Home Medications Medication Instructions Recorded Confirmed Type multivitamin 1 tab PO QPM 05/27/19 06/11/23 History cholecalciferol (vitamin D3) 25 2,000 unit PO QPM 05/31/20 06/11/23 History mcg (1,000 unit) capsule turmeric root extract 500 mg 500 mg PO QAM 06/24/20 06/11/23 History capsule calcium carbonate 200 mg calcium 200 mg PO BID PRN gerd 08/04/20 06/11/23 History (500 mg) chewable tablet (Tums) glucosamine-chondroitin 250 mg-200 2 tab PO QPM 02/06/23 06/11/23 History mg tablet (Osteo Bi-Flex) mecobalamin (vitamin B12) 1,000 1,000 mcg PO QPM 02/06/23 06/11/23 History mcg chewable tablet Thytrophin 1 tab PO QPM 05/21/23 06/11/23 History magnesium malate, chelate 125 mg PO QPM 05/21/23 06/11/23 History losartan 50 mg tablet 50 mg PO DAILY #30 tabs 05/29/23 06/11/23 Rx red beet root 250 mg-sour starks tab PO DAILY 06/11/23 06/11/23 History extract 0.5 mg chewable tablet Past Med/Surg History Medical History History of COVID-19 x4, most recent 07/2022- mild symptoms, resolved Cystocele with uterine prolapse Uterine prolapse Arthritis GERD (gastroesophageal reflux disease) Chronic cough Chronic, non-productive x years- unchanged Cardiac murmur Hx rheumatic fever as child Does not follow with deck cadet Stress Echo 02/2022: No significant valvular disease Hyperlipidemia Abnormal TSH Taking thytrophin TSH/Free T4 WNL 02/2023 Hypertension Surgical History S/P vaginal hysterectomy 03/2021, vault suspension, post repair, Jonnathan Reg[facility] [place] Status post right knee replacement Right TKA (10/18/20): SAB at L3-4 + PNB at [facility] History of surgical removal of ganglion cyst pinky finger on right hand History of cataract surgery R/L History of tonsillectomy H/O pyloroplasty As infant History of colonoscopy History of esophagogastroduodenoscopy (EGD) S/P tubal ligation S/P oophorectomy Family History Mother Coronary heart disease Myocardial infarction FH: CABG (coronary artery bypass surgery) Grandmother (Maternal) Diabetes Aunt Breast cancer Uncle Prostate cancer Myocardial infarction Sister Family history of reaction to anesthesia take a lot of anesthesia Denies family history of Ovarian cancer Colorectal cancer Social History Smoking Status: Never smoker Second Hand Exposure: No; Do You Dip or Chew Tobacco: No; Hx Alcohol Use: No Hx Substance Use: No Preferred Language: Divehi Communication Ability: Effective Visual Impairment: No Limitations Motocross Racer Required: No Beliefs That Will Affect Care: None marital status: Current Living Situation: Spouse current occupational status: retired Feels Safe at Home: Yes Childhood Exposure to Second-Hand Smoke: No Dental Care, Regularly: Yes Physical Activity Frequency: Does not Exercise Seatbelt Use: always Sunscreen Use: Yes (sometimes) Assistive Devices: Glasses Review of Systems All systems reviewed & are unremarkable except as noted in HPI & below. Physical Exam On physical examination of the left knee, she has slight varus deformity. She has tenderness palpation of the distal medial femoral condyle and over the medial joint line.. Constitutional WD/WN, vitals as above Eyes PERRL, conjunctivae normal, anicteric sclerae ENMT external ear and nose normal, oropharynx normal Neck trachea midline, no thyromegaly Respiratory normal respiratory effort Cardiovascular RRR, no murmur, no edema Gastrointestinal (Abdomen) normal bowel sounds, soft, nontender, no hepatosplenomegaly Psychiatric A+Ox3, euthymic affect Results & Data Results & Data Laboratory Results . Diagnostic Findings X-rays of the left knee show advanced osteoarthritis with joint space narrowing, osteophyte formation, and [id number] articulation. PG Care Time/CCT Total # of Minutes Spent Total Time Spent with Patient: Total time spent is greater than 50% in coordination of care (as documented) at patient's floor/unit and/or counseling patient: Coding Level of Care Code None Diagnoses Osteoarthritis of left knee M17.12
[~2023-06-25 08:32] MED LIST: ACETAMINOPHEN 500 MG TAB PO SCH; BUPIVACAINE 0.25% PF 30 ML VIAL ONE; BUPIVACAINE 0.5 % 5 MG/1 ML PF 10ML VIAL ONE; DEXAMETHASONE SOD INJ 4 MG/ML VIAL ONE; EPINEPHrine INJ 1 MG/ML AMP ONE; FAMOTIDINE 20 MG TAB PO SCH; GABAPENTIN 300 MG CAP PO SCH; LR 500ML BOLUS, THEN 15ML/HR IV SCH; LR 60ML/HR IV SCH; ORTHO JOINT MIX INFIL SCH; TRANEXAMIC ACID 1,000 MG **IV Intra-op IV SCH; TRANEXAMIC ACID 1,000 MG **IV Pre-op IV SCH; ceFAZolin 2000MG 2,000 MG/15 ML SYR IV SCH; dexAMETHasone 4 MG TAB PO SCH
[2023-06-25] MEDS ORDERED: MIDAZOLAM HCL 1 MG/ML 2ML VIAL ONE (09:02)
--- NOTE | 2023-06-25 09:45 | History & Physical Bridge Note ---
Date of Service June 25, 2023 History & Physical Bridge Note I have examined the patient, reviewed the History & Physical and in the interval since the performance of the History & Physical I have noted the following changes of clinical significance: no changes noted
[2023-06-25] MEDS ORDERED: ePHEDrine sulfate 50 MG/ML AMP IV PRN (10:01)
[2023-06-25] MEDS ORDERED: fentaNYL citrate PF 100 MCG/2 ML VIAL IV PRN (10:01)
[2023-06-25] MEDS ORDERED: ATROPINE SULFATE 0.1 MG/ML 10ML SYR IV PRN (10:01)
[2023-06-25] MEDS ORDERED: ONDANSETRON INJ 2 MG/ML 2 ML VIAL IV PRN ×2 (10:01→14:59)
[2023-06-25] MEDS ORDERED: ORTHO JOINT ANESTHETIC ONE (10:10)
[2023-06-25] MEDS ORDERED: PROPOFOL IV EMULSION 10 MG/ML 20 ML VIAL IV ONE (10:52)
[2023-06-25] MEDS ORDERED: ONDANSETRON INJ 2 MG/ML 2 ML VIAL ONE (10:52)
--- NOTE | 2023-06-25 11:45 | Operative Report ---
PG Post Operative Report Pre & Post Diagnosis Operation Date: 06/25/23 10:00 Pre-Op Diagnosis: Degenerative Joint Disease Left Knee Post-Op Diagnosis: Degenerative Joint Disease Left Knee I identified the patient and participated in the time-out.: Yes Procedure Operation Date: 06/25/23 10:00 Actual Procedures p Left Total Knee Arthroplasty(Left) - Gio Hammer DO Surgeon Gio Hammer DO [employer]er Gio Yeung PA-C Estimated Blood Loss 30 Findings Consistent with Post-Op Diagnosis Specimens Left femoral tibial bone Description of Procedure Implants used: I used a Heena Persona total knee arthroplasty system with a size 8 standard femur, E tibia, 28 oval patella, and a size 14 medial congruent polyethylene bearing. All components were cemented in place with Biomet cement. Jeanie arrived [facility] for the above procedure. She was seen in the preoperative holding area and the operative extremity was identified and signed. She was given a preoperative antibiotic, TXA, a spinal anesthetic and an adductor nerve block. She was taken back to the operating room and laid on the table in supine position. She was given basic sedation. The operative knee was then prepped and draped in sterile fashion. A timeout was done, and the patient and the operative extremity was properly identified. A midline incision was made directly over the patella. Dissection was taken down to the extensor mechanism. A midvastus arthrotomy was used. The medial retinaculum was released and the fat pad was mostly excised. The knee was flexed and the ACL, PCL, and meniscus were removed. A drill was sent down the center of the femoral canal followed by an intramedullary ellen. Off that ellen a distal femoral cutting block was placed. 9 mm was resected off the distal femur at 5 of valgus. A posterior referencing AP sizing guide was then placed on the distal femur. The femur measured to be a size 8. 2 drill holes were placed in 3 of external rotation. A 4-in-1 cutting block was then impacted into place. Anterior, posterior, and chamfer cuts were then made. The proximal tibia was then exposed. An external tibial alignment guide was placed. A tibial cut guide was then anchored in place and the proximal tibia was then resected. The posterior aspect of the knee was then opened up and any additional meniscus fragments and osteophytes were removed. The tibia measured to be a size E. The tibial plate was then placed in the appropriate rotation and the tibia was drilled and punched. Trial components were then placed. I used a size 14 medial congruent polyethylene insert. The knee was brought through a full range of motion and felt to be stable. The peg holes for the femoral component were then drilled. The patella was then everted and 9 mm was resected off the posterior aspect of the patella. The patella measured to be a size 28 oval. 3 peg holes were then drilled. A trial patella was placed. The knee was once again brought through a full range of motion and felt to be stable. Trial components were then removed. The surrounding soft tissues were injected with 100 cc of an orthopedic pain control cocktail. All components were then cemented into place with Biomet cement. The final polyethylene insert was then snapped into place. Once cement was dry the tourniquet was deflated. Hemostasis was obtained. A dilute betadyne lavage was then done for 3 minutes. The joint was then irrigated with normal saline solution. The midvastus arthrotomy was then closed with #1 Vicryl suture. The skin was closed with 2-0 Vicryl, 3-0V lock suture, and luis. A soft compressive dressing was placed. She was then transferred to a hospital bed and taken to the postanesthesia care unit in stable condition. She tolerated the procedure well. Gio Yeung PA-C, was present for the entire procedure. He was critical for patient positioning, prepping, draping, retraction exposure, wound closure and application of sterile dressing. I attest to the content of the Intraoperative Record and any orders documented therein. Any exceptions are noted below.
--- NOTE | 2023-06-25 12:44 | XRay Report ---
TWO VIEWS LEFT KNEE CLINICAL HISTORY: Postoperative examination. FINDINGS: AP and crosstable lateral portable views of the left knee are obtained. A left knee arthrop lasty is in near anatomic alignment. There has been undersurface remodeling of the patella. No acute fracture is seen. There are expected postoperative changes around the knee including skin clips, soft tissue edema, and subcutaneous gas. IMPRESSION: Expected postoperative changes status post left knee arthroplasty. No acute fracture is s een. ACT 112: Negative or not required by law. Electronically signed by: Vipin Villanueva M.D. 06/25/2023 12:42 PM
--- NOTE | 2023-06-25 14:27 | Anesthesiology Progress Note ---
Date of Service June 25, 2023 Anesthesia Post Procedure Vital Signs Vital Signs: Temp Pulse Pulse Resp BP Pulse Ox O2 Del Method 06/25/23 14:00 62 18 128/65 94 Nasal Cannula 06/25/23 13:45 66 11 L 112/64 92 Nasal Cannula 06/25/23 13:30 62 16 115/62 93 Nasal Cannula 06/25/23 13:15 66 20 131/60 93 Nasal Cannula 06/25/23 13:00 60 16 122/62 93 Nasal Cannula 06/25/23 12:55 36.3 C L 59 L 12 119/65 93 Nasal Cannula 06/25/23 12:45 60 16 123/63 92 Nasal Cannula 06/25/23 12:35 61 14 132/62 97 Nasal Cannula 06/25/23 12:25 63 16 123/55 L 93 Nasal Cannula 06/25/23 12:15 66 18 123/59 L 95 Nasal Cannula 06/25/23 12:06 36.0 C L 76 14 128/62 91 Nasal Cannula 06/25/23 08:53 36.6 C 75 18 157/84 H 95 Room Air O2 Flow Rate 06/25/23 14:00 3 06/25/23 13:45 3 06/25/23 13:30 3 06/25/23 13:15 3 06/25/23 13:00 3 06/25/23 12:55 3 06/25/23 12:45 3 06/25/23 12:35 3 06/25/23 12:25 3 06/25/23 12:15 3 06/25/23 12:06 3 06/25/23 08:53 Transfer of Care Handoff Completed per policy Notes Mental Status: alert / awake / arousable Patient Amnestic to Procedure: Yes Nausea / Vomiting: adequately controlled Pain: adequately controlled Airway Patency, RR, SpO2: stable & adequate BP & HR: stable & adequate Hydration State: stable & adequate Neuraxial Anesthesia: was administered and sensory block is resolving Anesthetic Complications: no major complications apparent and Pt Satisfied with anesthetic care
[2023-06-25] MEDS ORDERED: METOCLOPRAMIDE HCL INJ 5 MG/ML 2 ML VIAL IV PRN (14:59)
[2023-06-25] MEDS ORDERED: bisacodyL 10 MG SUPP PR PRN (14:59)
[2023-06-25] MEDS ORDERED: HYDROmorphone INJ 0.5 MG/0.5 ML SYR IV PRN (14:59)
[2023-06-25] MEDS ORDERED: oxyCODONE HCL IR 5 MG TAB (IMMEDIATE RELEASE) PO PRN (14:59)
[2023-06-25] MEDS ORDERED: NALOXONE HCL 0.4 MG/1 ML VIAL/CARP IV PRN (14:59)
[2023-06-25] MEDS ORDERED: MAGNESIUM HYDROXIDE SUSP 30 ML UDC PO PRN (14:59)
[2023-06-25] MEDS: SODIUM CHLORIDE 0.9% 1,000 ML IV SCH (15:07)
[2023-06-25] MEDS: ACETAMINOPHEN 500 MG TAB PO SCH ×2 (16:25→21:38)
[2023-06-25] MEDS: KETOROLAC TROMETHAMINE 15 MG/ML VIAL IV SCH ×2 (16:25→21:38)
[2023-06-25] MEDS: ceFAZolin 2000MG 2,000 MG/15 ML SYR IV SCH (17:32)
[2023-06-25] MEDS: DOCUSATE SODIUM 100 MG CAP PO SCH (20:08)
[2023-06-25] MEDS: ASPIRIN 81 MG ECTAB PO SCH (20:09)
[2023-06-25] MEDS ORDERED: SENNA 8.6 MG TAB PO SCH (21:00)
[2023-06-26] MEDS: ceFAZolin 2000MG 2,000 MG/15 ML SYR IV SCH (01:33)
[2023-06-26] MEDS: SODIUM CHLORIDE 0.9% 1,000 ML IV SCH (01:43)
[2023-06-26] MEDS: KETOROLAC TROMETHAMINE 15 MG/ML VIAL IV SCH ×2 (03:17→08:34)
[2023-06-26] MEDS: ACETAMINOPHEN 500 MG TAB PO SCH (05:12)
--- NOTE | 2023-06-26 06:41 | Orthopedic Progress Note ---
Date of Service June 26, 2023 Assessment & Plan (1) Status post left knee replacement: Overall she is doing very well. She is not having much pain in the left knee. She will be seen by physical therapy today for ambulation and range of motion exercises. She is on aspirin for DVT prophylaxis. She can be discharged home later today. She will follow-up with orthopedics in 2 weeks. Bo Ware was seen and examined at bedside this morning. Overall she is doing fairly well. She is not having much pain in the left knee. She has been up and ambulating to the bathroom. She is no complaints.. Review of Systems All systems reviewed & are unremarkable except as noted in HPI & below. Physical Exam On physical examination of left knee, the dressing is clean and dry. Her leg is out full extension. She has active dorsiflexion plantarflexion of the left ankle.. Results & Data Results & Data Laboratory Results . Diagnostic Findings Postoperative x-rays of the left knee show the prosthesis to be in anatomic alignment without any evidence of fracture complication, or loosening.. PG Care Time/CCT Total # of Minutes Spent Total Time Spent with Patient: Total time spent is greater than 50% in coordination of care (as documented) at patient's floor/unit and/or counseling patient: Coding Level of Care Code 97358 Post Operative Follow-Up Diagnoses Status post left knee replacement Z96.652
--- NOTE | 2023-06-26 06:41 | Discharge Summary ---
Date of Service June 26, 2023 Admission HPI (Per Admitting) Jeanie is a pleasant 77-year-old female who has been dealing with chronic increasing left knee pain. I did a right knee replacement on her couple of years ago and she has done very well with that. She is struggling with her left knee. X-rays and clinical examination been diagnostic for advanced osteoarthritis of the left knee. After failing conservative treatment, she has elected proceed with a left total knee arthroplasty. Admission Exam (Per Admitting) On physical examination of the left knee, she has slight varus deformity. She has tenderness palpation of the distal medial femoral condyle and over the medial joint line.. Principal Diagnosis Same as "Discharge Diagnosis" noted below under Discharge Instructions. Discharge Exam On physical examination of left knee, the dressing is clean and dry. Her leg is out full extension. She has active dorsiflexion plantarflexion of the left ankle.. Discharge Data Procedures Performed Operation Date: 06/25/23 10:00 Actual Procedures p Left Total Knee Arthroplasty(Left) - Gio Hammer DO Ordered Studies 06/25/23 05:00 US - OR guided needle placemen Routine Hospital Course (1) Status post left knee replacement: On June 25, 2023 Jeanie arrived at [facility] and underwent knee replacement without complication. There was a spinal anesthetic. Postoperatively the patient was started on aspirin for DVT prophylaxis and transferred to the general orthopedic floors. The hospital course was uneventful. On postop day #1, the vital signs were stable and the pain was well controlled. They were able to participate well in with physical therapy doing ambulation and range of motion exercises. They were then discharged home. They will follow-up with orthopedics in 2 weeks. PG Care Time/CCT Total # of Minutes Spent Total Time Spent with Patient: Total time spent is greater than 50% in coordination of care (as documented) at patient's floor/unit and/or counseling patient: Discharge Plan Discharge Items Patient Disposition: Home - Home Health Services Reason For Visit: Degenerative Joint Disease Left Knee Discharge Diagnosis: Left knee replacement Activity: Per Instructions section Non-emergency contact: Surgeon Call non-emergency contact if: your wound has increased redness and your wound has increased drainage Follow-up/Referrals: Simran Jacob MD [Primary Care Provider] - Diet: Regular Addtl Attending Provider Instructions: Activity and Therapy Recommendations: * If you are using [facility] then therapy will be provided at your home until they feel you have accomplished all of your goals. * If you are using [facility] then Physical Therapy will be provided until they feel you are ready to start Outpatient Physical Therapy. * If you are not using home therapy then Outpatient Physical Therapy should start about 3-5 days from your day of surgery. Therapy will last about 6-10 weeks * It is important not to put a pillow under your knee when you are relaxing or sleeping. It is just as important to make sure you are getting your knee perfectly straight as it is to regain your knee bend. * You were shown a series of exercises in the hospital. Do these exercises three times each day including the exercises you were shown in physical therapy. * Get up and walk several times each day. For the first four weeks, try not to stand or walk for more than one hour at a time. If you do stand or walk for more than one hour, you will not hurt anything, but your leg will likely swell. * As you feel comfortable, you may change from the walker or crutches to a cane and then to independent walking. Medications: * Narcotic You will likely be sent home from the hospital with a prescription for the narcotic pain medication that worked best throughout your stay. * Aspirin Most patients will be required to take Aspirin 81mg twice a day for 6 weeks after surgery. This is obtained [id number] and a prescription is not necessary. * cefadroxil -take the antibiotic twice a day for 10 days to help prevent infections * Other medications may be prescribed for specific circumstances. If you have any questions, please call the office at . * Resume previous home medications unless otherwise instructed TEDs/Elastic Stockings: The white elastic stockings help limit swelling and prevent blood clots from forming in your legs.~ The more you wear them, the more they work. Wear them for six weeks. Dressing Care: The dressing can be changed after physical therapy on postop day #1. Daily dry dressing changes for a few days, especially if the incision is still draining some. If the incision is not draining then you may leave the luis open to air. If there is a little bit of drainage or if the luis are getting stuck on your clothing then cover the incision with a dry dressing. The luis will be removed at your 2 week follow-up appointment. Showering: You may shower 5 days from the day of surgery as long as the incision is no longer draining. You may shower with the luis exposed. Let soapy water run over the luis and pat them dry. Do not scrub or soak the incision. Things To Watch For: * Drainage from the incision site that occurs more than one week after your surgery. * Increased redness at the incision site. * Fever above 102 degrees Fahrenheit. * Unusual chest pain or shortness of breath. * Call [facility] at with any of the above problems Follow-Up Visit: Follow-up with Dr. Hammer's PA (Gio Yeung) 2-3 weeks after your day of surgery. He will remove your luis and answer any questions. If you have any additional questions or concerns, Dr Hammer is usually in the office at the same time and will be available An appointment was probably scheduled when you signed-up for surgery in the office. If you have any questions call Office Instructions: More detailed instructions as well as Frequently Asked Questions were provided in a folder by our office when you signed-up for surgery. Please review these instructions when you get home. If you have any further questions or concerns, please feel free to call the office at [phone] Pending Studies at Discharge: No Stand-Alone Forms: [facility], Smoking Cessation Medications and DC Order Prescriptions: New aspirin 81 mg Tablet,Delayed Release (Dr/Ec) 81 mg PO BID 42 Days Qty: 84 0RF oxycodone 5 mg Tablet 5 mg PO Q4H PRN (Reason: pain) Qty: 30 0RF cefadroxil 500 mg capsule 500 mg PO BID 10 Days Qty: 20 0RF Continued losartan 50 mg tablet 50 mg PO DAILY Qty: 30 0RF red beet root-sour starks ext 250-0.5 mg tablet,chewable PO DAILY mecobalamin (vitamin B12) 1,000 mcg tablet,chewable 1,000 mcg PO QPM multivitamin tablet 1 tab PO QPM cholecalciferol (vitamin D3) 25 mcg (1,000 unit) capsule 2,000 unit PO QPM turmeric root extract 500 mg Capsule 500 mg PO QAM glucosamine-chondroitin [Osteo Bi-Flex] 250-200 mg tablet 2 tab PO QPM calcium carbonate [Tums] 200 mg calcium (500 mg) Tablet,Chewable 200 mg PO BID PRN (Reason: gerd) magnesium malate, chelate 125 mg magnesium Capsule 125 mg PO QPM Thytrophin 1 tab PO QPM Admission Data Admit Date/Time: 06/25/23 12:12 Attending Provider: Gio Hammer Admit Provider: Gio Hammer Primary Care Provider: Simran Jacob V.
[2023-06-26] MEDS ORDERED: dexAMETHasone 4 MG TAB PO SCH (08:00)
[2023-06-26] MEDS: DOCUSATE SODIUM 100 MG CAP PO SCH (08:33)
[2023-06-26] MEDS: ASPIRIN 81 MG ECTAB PO SCH (08:35)
[2023-06-26] MEDS ORDERED: LOSARTAN POTASSIUM 50 MG TAB PO SCH (09:00)
[2023-06-26] MEDS ORDERED: MULTIVITAMIN TAB PO SCH (09:00)
== END 2023-06-26 11:06 | disposition home health service (06) ==
LOC: 3E 08:32 → ASU 08:32